=== PATIENT | male | born 1945 | race Caucasian/White ===

== ENCOUNTER 2016-10-25 19:11 | Emergency (ER) | payer MEDICARE, OTHER ==
[2016-10-25 19:19] VITALS: BP 142/89; PULSE 70; RESP 20; TEMP 98; O2SAT 94
[2016-10-25] MEDS ORDERED: ASPI81CH37 CHEW (19:28)
[2016-10-25] MEDS ORDERED: ROSU10 PO (19:28)
[2016-10-25] MEDS ORDERED: AZOR5TAB2 PO (19:28)
--- NOTE | 2016-10-25 20:07 | PD ---
HPI Chief Complaint: Musculoskeletal Complaint Time Seen by Provider: 19:50 Travel History International Travel<30 days: No Contact w/Intl Traveler<30days: No Traveled to known affect area: No History of Present Illness HPI 71-year-old male presents emergency room for evaluation of right shoulder pain and injury prior to arrival. He reports 5 days ago while doing yard work he was using large tree trimmers and felt a crunching sensation in his right shoulder, he develops immediate pain in the shoulder. he has been wearing a sling on the right arm which improved the shoulder pain. He reports he reinjured the shoulder today when he extended the right arm he felt immediate pain within the right shoulder again. He describes the pain as sharp, nonradiating, worse with abduction and external rotation of the forearm, relieved with rest, severity 7 out of 10. He reports some intermittent paresthesias of the right upper extremity which is improved with immobilization. He denies weakness of the extremity. PFSH Past Medical History Hx Anticoagulant Therapy: Yes (ASA) Cancer: Yes (PROSTATE) Cardiac Catheterization: Yes (BALLOON AND STENT: 1997) High Cholesterol: Yes Coronary Artery Disease: Yes Hypertension: Yes Tetanus Vaccination: > 5 Years Influenza Vaccination: Yes Past Surgical History Coronary Artery Bypass Graft: Yes (4 VESSEL: 2006) Eye Surgery: Yes (CATARACT) Genitourinary Surgery: Yes (PROSTATE CRYO) Prostatectomy: Yes Tonsillectomy: Yes Social History Alcohol Use: No Tobacco Use: No Substance Use: No Allergies-Medications (Allergen,Severity, Reaction): Coded Allergies: Darvocet-N 100 (Verified Allergy, Severe, 01/28/04) Iodine (Verified Allergy, Severe, 01/28/04) Penicillin (Verified Allergy, Severe, 01/28/04) Percocet (Verified Allergy, Severe, 01/28/04) Reported Meds & Prescriptions Reported Meds & Active Scripts Active Reported Aspirin Low Dose (Aspirin) 81 Mg Chew 81 Mg CHEW DAILY Shanta (Amlodipine-Olmesartan) 5-20 Mg Tab 1 Tab PO DAILY Crestor (Rosuvastatin Calcium) 10 Mg Tab 10 Mg PO DAILY Review of Systems Except as stated in HPI: all other systems reviewed are Neg Physical Exam Narrative GENERAL: Alert, well-appearing male. SKIN: Focused skin assessment warm/dry. HEAD: Atraumatic. Normocephalic. EYES: Pupils equal and round. No scleral icterus. No injection or drainage. ENT: No nasal bleeding or discharge. Mucous membranes pink and moist. NECK: Trachea midline. No JVD. CARDIOVASCULAR: Regular rate and rhythm. No murmur appreciated. RESPIRATORY: No accessory muscle use. Clear to auscultation. Breath sounds equal bilaterally. GASTROINTESTINAL: Abdomen soft, non-tender, nondistended. Hepatic and splenic margins not palpable. MUSCULOSKELETAL: No obvious deformities. No clubbing. No cyanosis. No edema. Right upper extremity: Tender to palpation over the proximal humeral head and shoulder joint. Pain with external rotation of the elbow. 2+ distal pulses. Equal hand grasp. Normal sensation with 2-point discrimination in the extremity. NEUROLOGICAL: Awake and alert. No obvious cranial nerve deficits. Motor grossly within normal limits. Normal speech. PSYCHIATRIC: Appropriate mood and affect; insight and judgment normal. Data Data Last Documented VS Vital Signs Date Time Temp Pulse Resp B/P Pulse Ox O2 Delivery O2 Flow Rate FiO2 10/25/16 21:52 69 149/84 95 Room Air 10/25/16 19:19 98.0 20 Orders Shoulder, Complete (>2vws) (10/25/16 ) Ketorolac Inj (Toradol Inj) (10/25/16 20:30) [facility] Medical Decision Making Medical Screen Exam Complete: Yes Emergency Medical Condition: Yes Differential Diagnosis Right shoulder pain fracture versus sprain versus strain versus dislocation Narrative Course 71-year-old male presents emergency department for evaluation of right shoulder pain after doing yard work 5 days ago. Patient reports he heard a cracking sensation in his right shoulder when he was using tree trimmers. He treated the arm with immobilization which improved the symptoms until today when he externally rotated elbow and felt immediate pain in the right shoulder again. X -ray of the right shoulder are negative for fracture or dislocation. The extremity is neurovascularly intact. Patient will be given a sling for immobilization NSAIDs for pain and instructed to follow up with primary care or ORTHO. Patient is in agreement to this plan. 2214 patient reassessed he reports symptom relief after Toradol injection. Diagnosis Primary Impression: Right shoulder injury Qualified Code: S49.91XA - Right shoulder injury, initial encounter Referrals: Shelton Mckinney MD Orthopedist Scripts Ibuprofen 800 Mg [id number] Mg PO Q8H PRN (Pain/Inflammation) #30 TAB Prov:Rox Kaiser 10/25/16 Disposition: 01 DISCHARGE HOME Condition: Stable Rox Kaiser Oct 25, 2016 20:07
[2016-10-25] MEDS ORDERED: KETOROLAC TROMETHAMINE 60 MG/2 ML (IM) VIAL IM ONE (20:30)
[2016-10-25 21:52] VITALS: BP 149/84; PULSE 69; O2SAT 95
--- NOTE | 2016-10-25 22:17 | RADHPO ---
EXAM DATE/TIME: 10/25/2016 21:30 [place] COMPARISON: No previous studies available for comparison. INDICATIONS : Right shoulder pain from landscaping tool. MEDICAL HISTORY : None. SURGICAL HISTORY : None. ENCOUNTER: Initial ACUITY: 4 - 6 days PAIN SCORE: 9/10 LOCATION: Right Shoulder FINDINGS: 4 views of the right shoulder demonstrate no fracture or dislocation. The acromioclavicular joint is intact but demonstrates mild osteoarthritis change. The visualized soft tissues demonstrate no abnorm ality. Visualized portions of the right lung are clear. No displaced rib fracture is seen. There has been pr ior median sternotomy. CONCLUSION: No acute right shoulder abnormality is identified. Narayan Branham MD on October 25, 2016 at 22:14 Board Certified Radiologist. This report was verified electronically.
[2016-10-25] MEDS ORDERED: IBUP800T23 PO (22:39)
== END 2016-10-25 22:49 | disposition home or self-care (01) ==
LOC: PHED 19:11
DX: S49.91XA Unspecified injury of right shoulder and upper arm, initial encounter (principal); X58.XXXA Exposure to other specified factors, initial encounter; Y93.H2 Activity, gardening and landscaping
CPT/HCPCS: 73030; 96372; 99284; J1885